=== PATIENT | female | born 1955 | race Caucasian/White ===

== ENCOUNTER 2023-01-22 06:46 | Day surgery (SDC) | payer OTHER, SELFPAY ==
--- NOTE | 2023-01-21 13:24 | P.CONAN_ITS ---
Documented by User: Sachi Johnson NP 01/21/23 13:24 HPI - Anesthesia Eval Consult details Narrative: 67yo F for Colonoscopy PMFSH Past Medical History Medical History Anxiety Asthma Back pain Celiac disease HTN (hypertension) Mitral valve prolapse Osteoarthritis Osteoporosis Spinal stenosis Urinary incontinence Surgical History Surgical History History of back surgery History of carpal tunnel surgery Social History Social History Patient Tobacco Use Status: Never used Tobacco Use of substances other than those prescribed or required for medical reasons: No Are you DNR?: No Advance Directives: No Advance Directives Information Provided: Yes Recently lost weight without trying: No Nutrition Risks: No Nutritional Risk Meds Allergies Allergy/AdvReac Type Severity Reaction Status Date / Time Sulfa (Sulfonamide Allergy Rash Verified 01/21/23 12:12 Antibiotics) sulfamethoxazole Allergy Rash Verified 01/21/23 12:12 [From Bactrim] trimethoprim [From Bactrim] Allergy Rash Verified 01/21/23 12:12 codeine AdvReac Flushing Verified 01/22/23 07:04 Home Medications Medication Instructions Recorded Confirmed Last Taken Type Calcium 500 + D 1 tab PO DAILY 01/21/23 01/22/23 Unknown History hydrochlorothiazide 12.5 mg capsule 12.5 mg PO DAILY 01/21/23 01/21/23 Unknown History losartan 50 mg tablet 50 mg PO DAILY 01/21/23 01/21/23 01/22/23 History oxybutynin chloride 5 mg 5 mg PO DAILY 01/21/23 01/22/23 Unknown History tablet,extended release 24 hr cyclosporine 0.05 % eye drops in a 1 drp ophthalmic (eye) BID 01/22/23 01/22/23 Unknown History dropperette (Restasis) Exam Exam Date and Time: January 21, 20231323 Assessment and Plan Assessment Anesthesia Assessment: Chart Reviewed Documented by User: Leslee Andrews MD 01/22/23 08:17 [facility] Past Medical History Medical History Anxiety Asthma Back pain Celiac disease HTN (hypertension) Mitral valve prolapse Osteoarthritis Osteoporosis Spinal stenosis Urinary incontinence Surgical History Surgical History History of back surgery History of carpal tunnel surgery History of Problems with Anesthesia: No Social History Social History Patient Tobacco Use Status: Never used Tobacco Use of substances other than those prescribed or required for medical reasons: No Are you DNR?: No Advance Directives: No Advance Directives Information Provided: Yes Recently lost weight without trying: No Nutrition Risks: No Nutritional Risk Meds Allergies Allergy/AdvReac Type Severity Reaction Status Date / Time Sulfa (Sulfonamide Allergy Rash Verified 01/21/23 12:12 Antibiotics) sulfamethoxazole Allergy Rash Verified 01/21/23 12:12 [From Bactrim] trimethoprim [From Bactrim] Allergy Rash Verified 01/21/23 12:12 codeine AdvReac Flushing Verified 01/22/23 07:04 Home Medications Medication Instructions Recorded Confirmed Last Taken Type Calcium 500 + D 1 tab PO DAILY 01/21/23 01/22/23 Unknown History hydrochlorothiazide 12.5 mg capsule 12.5 mg PO DAILY 01/21/23 01/21/23 Unknown History losartan 50 mg tablet 50 mg PO DAILY 01/21/23 01/21/23 01/22/23 History oxybutynin chloride 5 mg 5 mg PO DAILY 01/21/23 01/22/23 Unknown History tablet,extended release 24 hr cyclosporine 0.05 % eye drops in a 1 drp ophthalmic (eye) BID 01/22/23 01/22/23 Unknown History dropperette (Restasis) Exam Airway Mallampati Class: II TM Dist: >3cm Neck ROM: Full Loose/Missing/Broken Teeth: No Heart: RRR Lungs: CTA Assessment and Plan Assessment Anesthesia Assessment: Anesthesia Plan Discussed Final Anesthetic Review History of Problems with Anesthesia: No NPO: Yes ASA Class: II Final Preanesthetic Review: Meds/Allgs Chart Reviewed, Consent Obtained/Reviewed and Anes Risks/Benef Reviewed Patient Risk: Low Procedure Risk: Low Anesthetic Plan Anesthetic Plan: MAC: Disposition: Standard PACU
[2023-01-22 07:06] VITALS: BMI 37.5
[2023-01-22 07:23] VITALS: BP 141/80; PULSE 87; RESP 16; TEMP 36.4; O2SAT 98
[2023-01-22] MEDS: Lactated Ringers 1,000 ML 100 ML IVCONT (07:29)
--- NOTE | 2023-01-22 08:06 | MHC.SHP ---
Pre-Procedural Eval Section A Date of Service: 01/22/23 Section B Chief Complaint: screening Details of Present Illness: see H*P no changes Relevant Family History (Specify if Yes): No Relevant Social History: None Present Medications: see Short Stay Collaborative assessment Medical History: No relevant PMH History of Previous Operations: No relevant previous surgery Allergies: Allergies Allergy/AdvReac Type Severity Reaction Status Date / Time Sulfa (Sulfonamide Allergy Rash Verified 01/21/23 12:12 Antibiotics) sulfamethoxazole Allergy Rash Verified 01/21/23 12:12 [From Bactrim] trimethoprim [From Bactrim] Allergy Rash Verified 01/21/23 12:12 codeine AdvReac Flushing Verified 01/22/23 07:04 Review of Systems Sugical H&P ROS: Negative: Constitution, Cardiovascular, Respiratory, Neurological, Psychiatric, Hem-Onc, Allergic/Immunologic, Gastrointestinal, Genitourinary, Musculoskeletal, Integumentary, Endocrine and Eyes/Ears/Nose/Throat Exam Surgical H&P Exam: Normal: HEENT, Normal: Heart, Normal: Lungs, Normal: Extremities, Normal: Abdomen, Normal: Skin and Normal: Neurological Plan Diagnosis/Plan: Unchanged I have reviewed the history and physical and performed a pertinent physical examination on my patient. No changes have occurred unless specified. Time Spent With Patient Time: Total time managing care of this patient today ____ minutes.
--- NOTE | 2023-01-22 08:09 | P.CONAN_ITS ---
[facility] Past Medical History Medical History Anxiety Asthma Back pain Celiac disease HTN (hypertension) Mitral valve prolapse Osteoarthritis Osteoporosis Spinal stenosis Urinary incontinence Surgical History Surgical History History of back surgery History of carpal tunnel surgery History of Problems with Anesthesia: No Social History Social History Patient Tobacco Use Status: Never used Tobacco Use of substances other than those prescribed or required for medical reasons: No Are you DNR?: No Advance Directives: No Advance Directives Information Provided: Yes Recently lost weight without trying: No Nutrition Risks: No Nutritional Risk Meds Allergies Allergy/AdvReac Type Severity Reaction Status Date / Time Sulfa (Sulfonamide Allergy Rash Verified 01/21/23 12:12 Antibiotics) sulfamethoxazole Allergy Rash Verified 01/21/23 12:12 [From Bactrim] trimethoprim [From Bactrim] Allergy Rash Verified 01/21/23 12:12 codeine AdvReac Flushing Verified 01/22/23 07:04 Active Medications: Current Medications Albuterol Sulfate (Albuterol Sulfate (0.083%) 2.5 Mg/3 Ml Vial.Neb) 2.5 mg INHALE ONCE PRN PRN Reason: Shortness of Breath/Wheezing Lactated Ringer's (Lr) 1,000 mls @ 100 mls/hr IVCONT .Q10H TOM Last Admin: 01/22/23 07:29 Dose: 100 mls/hr Home Medications Medication Instructions Recorded Confirmed Last Taken Type Calcium 500 + D 1 tab PO DAILY 01/21/23 01/22/23 Unknown History hydrochlorothiazide 12.5 mg capsule 12.5 mg PO DAILY 01/21/23 01/21/23 Unknown History losartan 50 mg tablet 50 mg PO DAILY 01/21/23 01/21/23 01/22/23 History oxybutynin chloride 5 mg 5 mg PO DAILY 01/21/23 01/22/23 Unknown History tablet,extended release 24 hr cyclosporine 0.05 % eye drops in a 1 drp ophthalmic (eye) BID 01/22/23 01/22/23 Unknown History dropperette (Restasis) Exam Exam Date and Time: January 22, 2023 0809 Height,Weight and Vital Signs: Height 5 ft 7 in Weight 108.862 kg Last Vital Signs Temp 97.6 F 01/22/23 07:23 Pulse 87 01/22/23 07:23 Resp 16 01/22/23 07:23 BP 141/80 H 01/22/23 07:23 Pulse Ox 98 01/22/23 07:23 O2 Del Method Room Air 01/22/23 07:23 Airway Mallampati Class: II TM Dist: >3cm Loose/Missing/Broken Teeth: No Heart: RRR Lungs: CTA Assessment and Plan Assessment Anesthesia Assessment: Anesthesia Plan Discussed and Chart Reviewed Final Anesthetic Review History of Problems with Anesthesia: No NPO: Yes ASA Class: II Final Preanesthetic Review: Meds/Allgs Chart Reviewed, Consent Obtained/Reviewed and Anes Risks/Benef Reviewed Patient Risk: Low Procedure Risk: Low Anesthetic Plan Anesthetic Plan: MAC: Disposition: Standard PACU
--- NOTE | 2023-01-22 08:13 | P.CONAN_ITS ---
[facility] Past Medical History Medical History Anxiety Asthma Back pain Celiac disease HTN (hypertension) Mitral valve prolapse Osteoarthritis Osteoporosis Spinal stenosis Urinary incontinence Surgical History Surgical History History of back surgery History of carpal tunnel surgery History of Problems with Anesthesia: No Social History Social History Patient Tobacco Use Status: Never used Tobacco Use of substances other than those prescribed or required for medical reasons: No Are you DNR?: No Advance Directives: No Advance Directives Information Provided: Yes Recently lost weight without trying: No Nutrition Risks: No Nutritional Risk Meds Allergies Allergy/AdvReac Type Severity Reaction Status Date / Time Sulfa (Sulfonamide Allergy Rash Verified 01/21/23 12:12 Antibiotics) sulfamethoxazole Allergy Rash Verified 01/21/23 12:12 [From Bactrim] trimethoprim [From Bactrim] Allergy Rash Verified 01/21/23 12:12 codeine AdvReac Flushing Verified 01/22/23 07:04 Active Medications: Current Medications Albuterol Sulfate (Albuterol Sulfate (0.083%) 2.5 Mg/3 Ml Vial.Neb) 2.5 mg INHALE ONCE PRN PRN Reason: Shortness of Breath/Wheezing Lactated Ringer's (Lr) 1,000 mls @ 100 mls/hr IVCONT .Q10H TOM Last Admin: 01/22/23 07:29 Dose: 100 mls/hr Home Medications Medication Instructions Recorded Confirmed Last Taken Type Calcium 500 + D 1 tab PO DAILY 01/21/23 01/22/23 Unknown History hydrochlorothiazide 12.5 mg capsule 12.5 mg PO DAILY 01/21/23 01/21/23 Unknown History losartan 50 mg tablet 50 mg PO DAILY 01/21/23 01/21/23 01/22/23 History oxybutynin chloride 5 mg 5 mg PO DAILY 01/21/23 01/22/23 Unknown History tablet,extended release 24 hr cyclosporine 0.05 % eye drops in a 1 drp ophthalmic (eye) BID 01/22/23 01/22/23 Unknown History dropperette (Restasis) Exam Exam Date and Time: January 22, 2023812 Height,Weight and Vital Signs: Height 5 ft 7 in Weight 108.862 kg Last Vital Signs Temp 97.6 F 01/22/23 07:23 Pulse 87 01/22/23 07:23 Resp 16 01/22/23 07:23 BP 141/80 H 01/22/23 07:23 Pulse Ox 98 01/22/23 07:23 O2 Del Method Room Air 01/22/23 07:23 Assessment and Plan Final Anesthetic Review History of Problems with Anesthesia: No ASA Class: II Patient Risk: Low Procedure Risk: Low Anesthetic Plan Anesthetic Plan: MAC: Disposition: Standard PACU
[2023-01-22 08:53] VITALS: BP 117/69; PULSE 62; RESP 20; TEMP 36.8; O2SAT 98
--- NOTE | 2023-01-22 08:53 | PM.OP ---
Brief Operative Note Date of Service: 01/22/23 Pre-op diagnosis: screening Post-op diagnosis: same Procedure: colonoscopy Surgeon: Samir Collado Anesthesia: MAC Was an Manager Post used for this Procedure?: No Estimated blood loss (mL): 2 Pathology: other Condition: stable Disposition: PACU
[2023-01-22 09:08] VITALS: BP 114/57; PULSE 65; RESP 16; TEMP 36.6; O2SAT 98
--- NOTE | 2023-01-22 09:10 | OP_ITS ---
DATE OF SERVICE: 01/22/2023 SURGEON: Samir Collado MD INDICATIONS: Colon cancer screening and prior history of adenomatous colon polyps. PREOPERATIVE DIAGNOSIS: POSTOPERATIVE DIAGNOSIS: PROCEDURE PERFORMED: Colonoscopy to the terminal ileum with biopsy and snare polypectomy. ESTIMATED BLOOD LOSS: COMPLICATIONS: ANESTHESIA: Monitored anesthesia care. ASSISTANTS: SPECIMENS: DESCRIPTION OF PROCEDURE: The procedure was performed on 01/22/2023. A history and physical was performed. The risks and benefits of the procedure were explained to the patient. Informed consent was obtained. The patient was placed in the left lateral decubitus position. A digital rectal exam was performed and was found to be normal. The Olympus pediatric videocolonoscope was introduced into the rectum and advanced to the cecum without difficulty. The cecum was identified by transillumination, palpation, and identification of ileocecal valve. Examination was performed, and the scope was removed. She tolerated the procedure well and was taken to recovery room in stable condition. FINDINGS: The terminal ileum was examined and appeared normal. The visualized colonic mucosa was within normal limits without evidence of masses or ulcers. Two polyps were removed from the cecum using a biopsy forceps. Both measured less than 5 mm. The third polyp at 80 cm measured approximately 6 mm to 7 mm and was removed with a hot snare and recovered via suction. No other polyps were identified. There was mild sigmoid diverticulosis. Retroflexed examination showed some small internal hemorrhoids. The quality of the prep was good. IMPRESSION: Colon polyps. RECOMMENDATION: Follow up biopsy results. MD ESTHER Chino/ADDIEL / [id number]
== END 2023-01-22 09:50 | disposition home or self-care (01) ==
PROVIDERS: PCP Internal Medicine; Visit Provider Internal Medicine Gastroenterology
PROC: 0DJD8ZZ Inspection of Lower Intestinal Tract, Via Natural or Artificial Opening Endoscopic (ICD-10-PCS; CPT 45378; principal; 2023-01-22 08:10)
DX: Z12.11 Encounter for screening for malignant neoplasm of colon (principal); Z86.010 Personal history of colon polyps; D12.0 Benign neoplasm of cecum; D12.4 Benign neoplasm of descending colon; K57.30 Diverticulosis of large intestine without perforation or abscess without bleeding; K64.8 Other hemorrhoids; K90.0 Celiac disease; I10 Essential (primary) hypertension; J45.909 Unspecified asthma, uncomplicated; M81.0 Age-related osteoporosis without current pathological fracture; Z79.899 Other long term (current) drug therapy; Z88.2 Allergy status to sulfonamides; Z88.8 Allergy status to other drugs, medicaments and biological substances
CPT/HCPCS: 45385; 45380; 88305